=== PATIENT | female | born 2000 | race Two or more races ===

== ENCOUNTER 2024-09-12 10:26 | Emergency (ER) | payer MEDICAID, SELFPAY ==
[2024-09-12 10:27] VITALS: BMI 22.6
[2024-09-12 10:36] VITALS: BP 130/62; PULSE 88; RESP 18; TEMP 36.9; O2SAT 99
[2024-09-12] MEDS: DIPHTH,PERTUSS(ACELL),TET VAC 0.5 ML SYR- ADULT IMi (10:47)
[2024-09-12] MEDS: LIDOCAINE HCL 1% 20 ML VIAL INFL (10:47)
--- NOTE | 2024-09-12 11:16 | EDNOTE_ITS ---
ED Wound/Laceration-RME/HPI General Chief Complaint: Wound/Laceration Stated Complaint: KNIFE CUT TO L) 4TH FINGER Time Seen by Provider: 09/12/24 10:27 Arrival date/time: 09/12/24 10:26 23-year-old female presents to the Emergency Department for complaint of laceration left hand fourth digit. Reports that she accidentally cut herself with a knife while cooking last evening. Limitations: no limitations Related Data Previous Rx's ?Medication ?Instructions ?Recorded ibuprofen 800 mg tablet 800 mg PO Q8H PRN pain #30 t abs 10/31/21 Allergies Allergy/AdvReac Type Severity Reaction Status Date / Time No Known Allergies Allergy Mild nka Uncoded 09/12/24 10:29 Review of Systems Review of Systems Systems Reviewed: All systems reviewed, normal except as documented Constitutional Constitutional: Reports system reviewed and no additional complaints, except as documented, Denies fever(s) and Denies headache(s) Eyes Eyes: Reports system reviewed and no additional complaints, except as documented and Denies blurry vision ENT Ears, Nose, Mouth, and Throat: Reports system reviewed and no additional complaints, except as documented, Denies headache(s), Denies nasal congestion and Denies nasal discharge Cardiovascular Cardiovascular: Reports system reviewed and no additional complaints, except as documented, Denies chest pain and Denies dyspnea Respiratory Respiratory: Reports system reviewed and no additional complaints, except as documented, Denies chest congestion, Denies cough and Denies dyspnea Gastrointestinal Gastrointestinal: Reports system reviewed and no additional complaints, except as documented and Denies abdominal pain Integumentary/Breasts Skin/Breast: Reports system reviewed and no additional complaints, except as documented, Denies rash and Reports wounds (Laceration left hand fourth digit dorsal aspect) Neurologic Neurologic: Reports system reviewed and no additional complaints, except as documented, Reports as per HPI and Denies headache(s) Past Medical History Past Medical History NEUROLOGIC: Negative Neurological Disorders or Seizures CARDIAC: Negative Cardiac Disorders or Congestive Heart Failure RESPIRATORY: Negative Chronic Obstructive Pulmonary Disease (COPD) GASTROINTESTINAL: Negative Gastrointestinal Disorders GENITOURINARY: Positive Genitourinary Disorders (UTI, YEAST INFECTION); Negative Renal Disease REPRODUCTIVE: Negative Previous Pregnancies MUSCULOSKELETAL: Negative Musculoskeletal Disorders ENDOCRINE: Negative Endocrine Disorders, Diabetes Mellitus Type 1 or Diabetes Mellitus Type 2 HEMATOLOGIC: Negative Blood Disorders OTHER HISTORY: Negative Autoimmune Disease, Falls, Blood Transfusions, Anesthesia Reactions or Cancer Family History FAMILY HISTORY: Positive Family Respiratory Disorders (MOTHER:ASTHMA) and Family Cardiac Disorders (FATHER:HTN); Negative Family Psychiatric Problems, Family Gastrointestinal Problems, Family Cancer, Family Surgery or Family Anesthesia Reaction Social History SMOKING STATUS: Never smoker ED Exam General Limitations: Present no limitations General appearance: Present alert and in no apparent distress Head Head exam: Present atraumatic Eye Eye exam: Present normal appearance, PERRL and EOMI ENT ENT exam: Present normal exam, normal oropharynx and mucous membranes moist Neck Neck exam: Present normal inspection, full ROM and trachea midline Chest Chest inspection: Present normal inspection and symmetric chest wall rise Respiratory Respiratory exam: Present normal lung sounds bilaterally Cardiovascular Cardiovascular exam: Present regular rate, normal rhythm and normal heart sounds Abdominal Exam Abdominal exam: Present soft and normal bowel sounds Extremities Exam Extremities exam: Present full ROM, tenderness, normal capillary refill and other (Laceration left hand fourth digit); Absent joint swelling Back Exam Back exam: Present normal inspection and full ROM Neurological Exam Neurological exam: Present alert, oriented X3 and CN II-XII intact Psychiatric Psychiatric exam: Present normal affect and normal mood Skin Skin exam: Present warm, dry and other (Laceration left hand fourth digit) Course Quality Measures none Orders Category Date Time Status Set Up Suture Tray STAT Care 09/12/24 10:41 Active Splint / Immobilizer STAT Care 09/12/24 10:42 Active Wound Care NOW Care 09/12/24 10:41 Active Lidocaine 1% 20 ml [Xylocaine 1% 20 ML] Med 09/12/24 10:41 Discontinued 20 ml INFL X1 ONE TET,DIP/PERT AC (Adult)-Tdap [Boostrix Adult (Tdap) Med 09/12/24 10:41 Discontinued Vacc] 0.5 ml IMI .ONCE ONE Vital Signs Vital signs: Vital Signs Temperature 98.5 F 09/12/24 10:36 Pulse Rate 88 09/12/24 10:36 Respiratory Rate 18 09/12/24 10:36 Blood Pressure 130/62 09/12/24 10:36 Pulse Oximetry (%) 99 09/12/24 10:36 Oxygen Delivery Method Room Air 09/12/24 10:36 O2 saturation 99% room air within normal limits Procedures -ED Laceration Laceration 1: Site: hand Side (If applicable): left Size (cm): 4 Description: linear Depth: simple, single layer Local Anesthetic: lidocaine 1% Amount of anesthesia used (mL): 6 Pre-repair: irrigated extensively Skin layer closed with: nylon Suture size (cm): 5-0 Number of sutures: 10 Technique: simple, interrupted Wound / Laceration MDM Narrative MDM Narrative:: 23-year-old female presents to the Emergency Department for complaint of laceration left hand fourth digit. Reports that she accidentally cut herself with a knife while cooking last evening. On exam patient well-appearing patient does not appear toxic no acute distress wound irrigated copiously laceration repaired with total of 10 sutures. On exam patient has no evidence of tendon or ligamentous injury patient has full range of motion no tendon exposed Patient placed in a finger splint to prevent her from moving her finger while sutures are in place Patient discharged home in no distress to follow-up with primary care doctor in the next 24 to 48 hours and for any worsening symptoms to return to the ER immediately Patient data External records reviewed:: [facility] previous records Clinical information provided by:: patient Social determinants that could affect healthcare access:: none Patient has the following chronic illnesses:: None How is presenting disease/condition affected by chronic disease/condition?: no chronic disease Evaluation data The following diagnostics were reviewed and interpreted by me:: other (specify) (N/A) Lab and/or radiology exams considered but not ordered:: considered not ordered Interpretation Summary: N/A Medications / Prescriptions Medications or Prescriptions considered but not ordered:: Given Medication administrations:: Medication Administration History Discontinued Medications Diphtheria/Tetanus/Acell Pertussis (Diphth,Pertuss(Acell),Tet Vac 0.5 Ml Syr- Adult) 0.5 ml IMi .ONCE ONE Stop: 09/12/24 10:42 Last Admin: 09/12/24 10:47 Dose: 0.5 ml Documented By: MELISSA Lidocaine HCl (Lidocaine Hcl 1% 20 Ml Vial) 20 ml INFL X1 ONE Stop: 09/12/24 10:42 Last Admin: 09/12/24 10:47 Dose: 20 ml Documented By: MELISSA Comments: USED BY PROVIDER Given Consultations Consultation(s) initiated? (list below): No Diagnosis Wound Differential Diagnosis: laceration, abrasion and avulsion of skin Most likely diagnosis given after review of the tests above:: Laceration finger Admission Indicated Admission indicated?: not indicated Admission Request Was there a request for admission?: No Disposition Plan Disposition Plan: Discharge Discharge Attestation Discharge Attestation: The patient and all family members were given an opportunity to ask questions and understood the discharge instructions. Discharge instructions specifically effects, indications for sooner follow up or return to the emergency department, and the expected course of current diagnosis. Patient condition: Stable Discharge Plan Plan Patient Disposition: HOME (Self Care) Discharge Disposition comment: Stable Prescriptions/Referrals Prescriptions/Med Rec: No Action ibuprofen 800 mg tablet 800 mg PO Q8H PRN (Reason: pain) Qty: 30 0RF Problem List Clinical Impression: Laceration of finger of left hand Patient/Caregiver Discharge Instructions Education Materials: ED Laceration: All Closures Additional Instructions: Please follow up with your primary care doctor in the next 24-48hrs for any worsening symptoms return here immediately Please have sutures removed in 10 days Print Language: Mongolian Stand Alone Forms: Sita Award Info., Patient Portal Info Letter Vaccines Vaccines Given During Stay: TDaP PA/FLUME TENDER Supervising Physician PA/FLUME TENDER Supervising Physician: Dr. hurst
== END 2024-09-12 11:23 | disposition home or self-care (01) ==
LOC: SERX 11:21
PROVIDERS: Emergency Provider Family Medicine; PCP Obstetrics & Gynecology
DX: S61.215A Laceration without foreign body of left ring finger without damage to nail, initial encounter (principal); W26.0XXA Contact with knife, initial encounter; Z23 Encounter for immunization; Y93.G3 Activity, cooking and baking
CPT/HCPCS: 12002; 90471; 90715; 99283; J3490